=== PATIENT | female | born 1990 ===

== ENCOUNTER 2019-05-13 10:39 | Inpatient (IN) | payer BC ==
[2019-05-13] MEDS ORDERED: Misoprostol 200 MCG Tab PO PRN (11:55)
[2019-05-13] MEDS ORDERED: Sodium Chloride 0.9% 10 ML Syringe FLUSH PRN (11:55)
[2019-05-13] MEDS ORDERED: Tranexamic Acid 1,000 MG in Sodium Chloride 0.9% 100 ML IV PRN (11:55)
[2019-05-13] MEDS ORDERED: Sodium Chloride 0.9% 2.5 ML Syringe FLUSH PRN (11:55)
[2019-05-13] MEDS ORDERED: Carboprost Tromethamine 250 MCG/1 ML Amp IM PRN (11:55)
[2019-05-13] MEDS ORDERED: Sodium Chloride 0.9% 10 ML SDV IV PRN (11:55)
[2019-05-13] MEDS ORDERED: Lidocaine 1% 50 ML MDV INJECT PRN (11:55)
[2019-05-13] MEDS ORDERED: Methylergonovine 0.2 MG/1 ML Amp IM PRN (11:55)
[2019-05-13] MEDS ORDERED: Ondansetron 4 MG/2 ML SDV IVPUSH PRN (11:55)
[2019-05-13] MEDS ORDERED: Nalbuphine 10 MG/1 ML Vial IVPUSH PRN (11:55)
[2019-05-13] MEDS ORDERED: Water For Irrigation,Sterile 1,000 ML Container IRR PRN (11:55)
[2019-05-13] MEDS ORDERED: Butorphanol 1 MG/ML SDV IVPUSH PRN (11:55)
[2019-05-13] MEDS ORDERED: Oxytocin/0.9 % Sodium Chloride 30 UNIT/500 ML BAG IV SCH ×2 (12:00→14:15)
[2019-05-13] MEDS ORDERED: Lactated Ringers 1,000 ML IV SCH (12:00)
--- NOTE | 2019-05-13 13:05 | PCM.LDHP ---
L&D History of Present Illness - General Date of Service: 05/13/19 Admit Problem/Dx: Patient Status Order with Admit Dx/Problem 05/13/19 11:04 Patient Status [ADT] Routine 05/13/19 11:56 Patient Status [ADT] Routine Admission Diagnosis/Problem Admission Diagnosis/Problem - planned Source of Information: Patient History Limitations: Reports: No Limitations - History of Present Illness Improves with: Reports: None Worsens with: Reports: None Associated Symptoms: Reports: N - Related Data Allergies/Adverse Reactions: Allergies Allergy/AdvReac Type Severity Reaction Status Date / Time No Known Allergies Allergy Verified 05/13/19 11:03 H&P Review of Systems - Review of Systems: Review Of Systems: See Below General: Reports: No Symptoms HEENT: Reports: No Symptoms Pulmonary: Reports: No Symptoms Cardiovascular: Reports: No Symptoms Gastrointestinal: Reports: No Symptoms Genitourinary: Reports: No Symptoms Musculoskeletal: Reports: No Symptoms Skin: Reports: No Symptoms Psychiatric: Reports: No Symptoms Neurological: Reports: No Symptoms Hematologic/Lymphatic: Reports: No Symptoms Immunologic: Reports: No Symptoms L&D Exam - Exam Exam: See Below - Vital Signs Weight: 98.43 kg - OB Specific Contraction Intensity: Mild to Moderate Movement: Active Heart Tones: Present Presentation: Vertex - Phillips Score Phillips Score Cervix Position: Anterior Phillips Score Effacement: 51-70% Phillips Score Dilation: 1-2 cm - Exam General: Alert, Oriented HEENT: PERRLA, Conjunctiva Clear, EACs Clear, EOMI, Hearing Intact, Mucosa Moist & [place], Nares Patent, Normal Nasal Septum, Posterior Pharynx Clear, TMs Clear Neck: Supple, Trachea Midline Lungs: Clear to Auscultation, Normal Respiratory Effort Cardiovascular: Regular Rate, Regular Rhythm GI/Abdominal Exam: Normal Bowel Sounds, Soft, Non-Tender, No Organomegaly, No Distention, No Abnormal Bruit, No Mass, Pelvis Stable Rectal Exam: Normal Exam, Normal Rectal Tone Genitourinary: Normal external exam, Normal bimanual exam, Normal speculum exam Back Exam: Normal Inspection, Full Range of Motion Extremities: Normal Inspection, Normal Range of Motion, Non-Tender, No Pedal Edema, Normal Capillary Refill Skin: Warm, Dry, Intact Neurological: Cranial Nerves Intact, Reflexes Equal Bilateral Psychiatric: Alert, Normal Affect, Normal Mood - Patient Data Lab Results Last 24 hrs: Laboratory Results - last 24 hr 05/13/19 05/13/19 Range/Units 10:39 12:13 WBC 11.47 H (4.0-11.0) K/uL RBC 4.02 L (4.30-5.90) M/uL Hgb 11.5 L (12.0-16.0) g/dL Hct 34.3 L (36.0-46.0) % MCV 85.3 (80.0-98.0) fL MCH 28.6 (27.0-32.0) pg MCHC 33.5 (31.0-37.0) g/dL RDW Std Deviation 45.3 (28.0-62.0) fl RDW Coeff of Nathan 15 (11.0-15.0) % Plt Count 268 (150-400) K/uL MPV 9.70 (7.40-12.00) fL Nucleated RBC % 0.0 /100WBC Nucleated RBCs # 0 K/uL Membrane Rupture POSITIVE Result Diagrams: 05/13/19 12:13 Problem List Initiated/Reviewed/Updated: Yes Orders Last 24hrs: Active Orders 24 hr Category Date Time Status Patient Status [ADT] Routine ADT 05/13/19 11:04 Active Patient Status [ADT] Routine ADT 05/13/19 11:56 Active Non Stress Test [RC] PER UNIT ROUTINE Care 05/13/19 11:04 Active May Shower [RC] ASDIRECTED Care 05/13/19 11:56 Active Notify Provider [RC] PRN Care 05/13/19 11:56 Active Up ad Queta [RC] ASDIRECTED Care 05/13/19 11:04 Active Vaginal Exam [RC] Click to Edit Care 05/13/19 11:04 Active Vital Signs [RC] PER UNIT ROUTINE Care 05/13/19 11:04 Active TYPE AND SCREEN [BBK] Routine Lab 05/13/19 12:13 Received Butorphanol [Stadol] Med 05/13/19 11:55 Active 1 mg IVPUSH Q1H PRN Carboprost Tromethamine [Hemabate DS] Med 05/13/19 11:55 Active 250 mcg IM ASDIRECTED PRN Lactated Ringers [Ringers, Lactated] 1,000 ml Med 05/13/19 12:00 Active IV ASDIRECTED Lidocaine 1% [Xylocaine 1%] Med 05/13/19 11:55 Active 50 ml INJECT ONETIME PRN Methylergonovine [Methergine] Med 05/13/19 11:55 Active 0.2 mg IM ASDIRECTED PRN Nalbuphine [Nubain] Med 05/13/19 11:55 Active 10 mg IVPUSH Q1H PRN Ondansetron [Zofran] Med 05/13/19 11:55 Active 4 mg IVPUSH Q4H PRN Oxytocin/0.9 % Sodium Chloride [Oxytocin 30 Unit/500 ML Med 05/13/19 12:00 Active -NS] 30 unit in 500 ml IV TITRATE Sodium Chloride 0.9% [Normal Saline] Med 05/13/19 11:55 Active 10 ml IV ASDIRECTED PRN Sodium Chloride 0.9% [Saline Flush] Med 05/13/19 11:55 Active 10 ml FLUSH ASDIRECTED PRN Sodium Chloride 0.9% [Saline Flush] Med 05/13/19 11:55 Active 2.5 ml FLUSH ASDIRECTED PRN Tranexamic Acid [Cyklokapron] 1,000 mg Med 05/13/19 11:55 Active Sodium Chloride 0.9% [Normal Saline] 100 ml IV ONETIME Water For Irrigation,Sterile [Sterile Water for Med 05/13/19 11:55 Active Irrigation] 1,000 ml IRR ASDIRECTED PRN miSOPROStol [Cytotec] Med 05/13/19 11:55 Active 200 mcg PO ONETIME PRN Scalp Electrode [WOMSER] Per Unit Routine Oth 05/13/19 11:56 Ordered Peripheral IV Insertion Adult [OM.PC] Routine Oth 05/13/19 11:56 Ordered Resuscitation Status Routine Resus Stat 05/13/19 11:04 Ordered Medication Orders Butorphanol Tartrate (Stadol) 1 mg IVPUSH Q1H PRN PRN Reason: Pain Carboprost Tromethamine (Hemabate Ds) 250 mcg IM ASDIRECTED PRN PRN Reason: Post Hemorrhage Tranexamic Acid 1,000 mg/ (Sodium Chloride) 110 mls @ 660 mls/hr IV ONETIME PRN PRN Reason: Bleeding Lactated Ringer's (Ringers, Lactated) 1,000 mls @ 150 mls/hr IV ASDIRECTED [facility] Oxytocin/Sodium Chloride (Oxytocin 30 Unit/500 Ml-Ns) 30 unit in 500 mls @ 500 mls/hr IV TITRATE RONNIE Lidocaine HCl (Xylocaine 1%) 50 ml INJECT ONETIME PRN PRN Reason: Laceration repair Methylergonovine Maleate (Methergine) 0.2 mg IM ASDIRECTED PRN PRN Reason: Post Hemorrhage Misoprostol (Cytotec) 200 mcg PO ONETIME PRN PRN Reason: Post Hemorrhage Nalbuphine HCl (Nubain) 10 mg IVPUSH Q1H PRN PRN Reason: Pain (severe 7-10) Ondansetron HCl (Zofran) 4 mg IVPUSH Q4H PRN PRN Reason: Nausea/Vomiting Sodium Chloride (Saline Flush) 10 ml FLUSH ASDIRECTED PRN PRN Reason: Keep Vein Open Sodium Chloride (Saline Flush) 2.5 ml FLUSH ASDIRECTED PRN PRN Reason: Keep Vein Open Sodium Chloride (Normal Saline) 10 ml IV ASDIRECTED PRN PRN Reason: IV Use Sterile Water (Sterile Water For Irrigation) 1,000 ml IRR ASDIRECTED PRN PRN Reason: delivery Assessment/Plan Comment:: IUP 39+3 SROM early labor.
[2019-05-13] MEDS ORDERED: Ropivacaine HCl/PF 100 ML ONE (17:29)
[2019-05-13] MEDS ORDERED: fentaNYL 100 MCG/2 ML SDV ONE (17:29)
--- NOTE | 2019-05-13 17:56 | PCM.PREANE ---
Preanesthetic Assessment - Anesthesia/Transfusion/Family Hx Anesthesia History: Prior Anesthesia Without Reaction Family History of Anesthesia Reaction: No - Physical Assessment Height: 1.68 m Weight: 97.069 kg ASA Class: 1 Mental Status: Alert & Oriented x3 Dentition: Reports: Normal Dentition - Lab Values: Laboratory Last Values WBC 11.47 K/uL (4.0-11.0) H 05/13/19 12:13 RBC 4.02 M/uL (4.30-5.90) L 05/13/19 12:13 Hgb 11.5 g/dL (12.0-16.0) L 05/13/19 12:13 Hct 34.3 % (36.0-46.0) L 05/13/19 12:13 MCV 85.3 fL (80.0-98.0) 05/13/19 12:13 MCH 28.6 pg (27.0-32.0) 05/13/19 12:13 MCHC 33.5 g/dL (31.0-37.0) 05/13/19 12:13 RDW Std Deviation 45.3 fl (28.0-62.0) 05/13/19 12:13 RDW Coeff of Nathan 15 % (11.0-15.0) 05/13/19 12:13 Plt Count 268 K/uL (150-400) 05/13/19 12:13 MPV 9.70 fL (7.40-12.00) 05/13/19 12:13 Nucleated RBC % 0.0 /100WBC 05/13/19 12:13 Nucleated RBCs # 0 K/uL 05/13/19 12:13 Membrane Rupture POSITIVE 05/13/19 10:39 Blood Type O POSITIVE 05/13/19 12:13 Antibody Screen NEGATIVE 05/13/19 12:13 - Allergies Allergies/Adverse Reactions: Allergies Allergy/AdvReac Type Severity Reaction Status Date / Time No Known Allergies Allergy Verified 05/13/19 11:03 - Acknowledgements Anesthesia Type Planned: Epidural Pt an Appropriate Candidate for the Planned Anesthesia: Yes Alternatives and Risks of Anesthesia Discussed w Pt/Guardian: Yes Pt/Guardian Understands and Agrees with Anesthesia Plan: Yes PreAnesthesia Questionnaire - Past Health History Medical/Surgical History: Denies 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 Smoking Status *Q: Former Smoker Tobacco Use Within Last Twelve Months: Cigarettes Second Hand Smoke Exposure: No Recreational Drug Use History: No - CURRENT (IN HOUSE) MEDS Current Meds: Current Medications Butorphanol Tartrate (Stadol) 1 mg IVPUSH Q1H PRN PRN Reason: Pain Last Admin: 05/13/19 17:30 Dose: 1 mg Carboprost Tromethamine (Hemabate Ds) 250 mcg IM ASDIRECTED PRN PRN Reason: Post Hemorrhage Tranexamic Acid 1,000 mg/ (Sodium Chloride) 110 mls @ 660 mls/hr IV ONETIME PRN PRN Reason: Bleeding Lactated Ringer's (Ringers, Lactated) 1,000 mls @ 150 mls/hr IV ASDIRECTED RONNIE Last Admin: 05/13/19 14:38 Dose: 150 mls/hr Oxytocin/Sodium Chloride (Oxytocin 30 Unit/500 Ml-Ns) 30 unit in 500 mls @ 500 mls/hr IV TITRATE RONNIE Oxytocin/Sodium Chloride (Oxytocin 30 Unit/500 Ml-Ns) 30 unit in 500 mls @ 2 mls/hr IV TITRATE RONNIE; Protocol Last Infusion: 05/13/19 16:32 Dose: 10 munits/min, 10 mls/hr Lidocaine HCl (Xylocaine 1%) 50 ml INJECT ONETIME PRN PRN Reason: Laceration repair Methylergonovine Maleate (Methergine) 0.2 mg IM ASDIRECTED PRN PRN Reason: Post Hemorrhage Misoprostol (Cytotec) 200 mcg PO ONETIME PRN PRN Reason: Post Hemorrhage Nalbuphine HCl (Nubain) 10 mg IVPUSH Q1H PRN PRN Reason: Pain (severe 7-10) Ondansetron HCl (Zofran) 4 mg IVPUSH Q4H PRN PRN Reason: Nausea/Vomiting Sodium Chloride (Saline Flush) 10 ml FLUSH ASDIRECTED PRN PRN Reason: Keep Vein Open Sodium Chloride (Saline Flush) 2.5 ml FLUSH ASDIRECTED PRN PRN Reason: Keep Vein Open Sodium Chloride (Normal Saline) 10 ml IV ASDIRECTED PRN PRN Reason: IV Use Sterile Water (Sterile Water For Irrigation) 1,000 ml IRR ASDIRECTED PRN PRN Reason: delivery Discontinued Medications Fentanyl (Sublimaze) Confirm Administered Dose 100 mcg .ROUTE .STK-MED ONE Stop: 05/13/19 17:30 Ropivacaine (Naropin 0.2%) Confirm Administered Dose 100 mls @ as directed .ROUTE .ST-MED ONE Stop: 05/13/19 17:30
--- NOTE | 2019-05-13 17:59 | PCM.PRNOTE ---
- Free Text/Narrative Note: Anes Note Patietn requests epidural for lL&D. Sitting position. Level L3-L4 midline approach. Sterile tehnique. Chloraprep scrub to lumbar area. Epidural Space easily achieved using ALAINA technique. ALAINA at 4 cm. Cath threaded 5 cmwith ease. Secured at 10 cm at skin with sterile clear adhesive dressing. Test 1845 3 cc 1.5 lido with epi negative Load 1847 10 cc 0.2% ropiv with 1 mcg cc fentanyl in slow divided doses. 1850 Pump started same solution at 8 cc hr with 6 cc q 20 min prn bolus. Tole well. Time with patient [id number] Juan Hernandez CRNA
[2019-05-13] MEDS ORDERED: Bisacodyl 10 MG Supp RECTAL PRN (18:27)
[2019-05-13] MEDS ORDERED: Benzocaine/Menthol 20%-0.5% Spray 78 GM Cannister TOP PRN (18:27)
[2019-05-13] MEDS ORDERED: Ibuprofen 400 MG Tab PO PRN (18:27)
[2019-05-13] MEDS ORDERED: Witch Hazel Medicated Pads 40/Jar TOP PRN (18:27)
[2019-05-13] MEDS ORDERED: Docusate Sodium 100 MG Cap PO PRN (18:27)
[2019-05-13] MEDS ORDERED: Lanolin 100% Cream 7 GM Tube TOP PRN (18:27)
[2019-05-13] MEDS ORDERED: Acetaminophen 500 MG Tab PO PRN (18:27)
[2019-05-13] MEDS ORDERED: oxyCODONE 5 MG Tab PO PRN (18:27)
--- NOTE | 2019-05-14 00:06 | OR ---
SURGEON: Chava Choi MD DATE OF PROCEDURE: DELIVERY NOTE: Ms. Luna is 29 years old patient. She is para 1-0-0-1. She is 39 plus 3. She is followed in our clinic jointly by myself and the nurse wafer fab technician. She had no complication. Her GBS status was negative. Her diabetes screen was negative. She is admitted with spontaneous rupture of the membranes that was confirmed by [facility]. At the time of admission, she was 4 to 5 cm, 80% vertex and -3. The patient is walked for a while and then she required Pitocin to start her labor. The patient progressed with the Pitocin to 6 to 7 cm, complete, vertex and -1. She had epidural anesthesia for labor analgesia and then she became complete and she was able to accomplish normal spontaneous vaginal delivery of a female fetus. Cried immediately. score reported to be 8 and 9. The placenta delivered spontaneous, complete and intact. There was no perineal, vaginal, or labial laceration. There was no need for episiotomy. Estimated blood loss 300 to 350 mL. heart rate was category 1 through the entire process of labor. There was no complication in the labor and delivery process. TELLO / VLADISLAV /[id number]
[2019-05-14] MEDS: Ibuprofen 800 MG Tab PO PRN ×3 (00:49→20:10)
[2019-05-14] MEDS: Acetaminophen 500 MG Tab PO PRN ×2 (04:50→13:13)
--- NOTE | 2019-05-14 07:30 | PCM.POSTAN ---
POST ANESTHESIA ASSESSMENT - VITAL SIGNS Vital Signs: Last Vital Signs Temp 36.3 C 05/14/19 04:35 Pulse 78 05/14/19 04:35 Resp 18 05/14/19 04:35 BP 106/65 05/14/19 04:35 Pulse Ox 96 05/14/19 04:35 - RESPIRATORY Respiratory Status: Respiratory Rate WNL - CARDIOVASCULAR CV Status: Pulse Rate WNL - GASTROINTESTINAL GI Status: No Symptoms - POST OP HYDRATION Hydration Status: Adequate & Stable
--- NOTE | 2019-05-14 07:30 | PCM48HPAN ---
Post Anesthesia Note - EVALUATION WITHIN 48HRS OF ANESTHETIC Vital Signs in Normal Range: Yes Patient Participated in Evaluation: Yes Respiratory Function Stable: Yes Airway Patent: Yes Cardiovascular Function Stable: Yes Hydration Status Stable: Yes Pain Control Satisfactory: Yes Nausea and Vomiting Control Satisfactory: Yes Mental Status Recovered: Yes Vital Signs: Last Vital Signs Temp 36.3 C 05/14/19 04:35 Pulse 78 05/14/19 04:35 Resp 18 05/14/19 04:35 BP 106/65 05/14/19 04:35 Pulse Ox 96 05/14/19 04:35
--- NOTE | 2019-05-14 11:44 | PCM.PNPP ---
- General Info Date of Service: 05/14/19 Functional Status: Reports: Pain Controlled - Review of Systems General: Reports: No Symptoms HEENT: Reports: No Symptoms Pulmonary: Reports: No Symptoms Cardiovascular: Reports: No Symptoms Gastrointestinal: Reports: No Symptoms Genitourinary: Reports: No Symptoms Musculoskeletal: Reports: No Symptoms Skin: Reports: No Symptoms Neurological: Reports: No Symptoms Psychiatric: Reports: No Symptoms - General Info Date of Service: 05/14/19 - Patient Data Vital Signs - Most Recent: Last Vital Signs Temp 36.5 C 05/14/19 08:00 Pulse 77 05/14/19 08:00 Resp 18 05/14/19 08:00 BP 126/83 05/14/19 08:00 Pulse Ox 96 05/14/19 08:00 Weight - Most Recent: 97.069 kg Lab Results - Last 24 Hours: Laboratory Results - last 24 hr 05/13/19 05/13/19 05/14/19 Range/Units 12:13 12:13 06:28 WBC 11.47 H (4.0-11.0) K/uL RBC 4.02 L (4.30-5.90) M/uL Hgb 11.5 L 10.5 L (12.0-16.0) g/dL Hct 34.3 L 31.4 L (36.0-46.0) % MCV 85.3 (80.0-98.0) fL MCH 28.6 (27.0-32.0) pg MCHC 33.5 (31.0-37.0) g/dL RDW Std Deviation 45.3 (28.0-62.0) fl RDW Coeff of Nathan 15 (11.0-15.0) % Plt Count 268 (150-400) K/uL MPV 9.70 (7.40-12.00) fL Nucleated RBC % 0.0 /100WBC Nucleated RBCs # 0 K/uL Blood Type O POSITIVE Antibody Screen NEGATIVE Med Orders - Current: Current Medications Acetaminophen (Tylenol Extra Strength) 500 mg PO Q4H PRN PRN Reason: Pain Acetaminophen (Tylenol Extra Strength) 1,000 mg PO Q4H PRN PRN Reason: Pain Last Admin: 05/14/19 04:50 Dose: 1,000 mg Benzocaine/Menthol (Dermoplast Pain Relief 20%-0.5% [place]) 0 gm TOP ASDIRECTED PRN PRN Reason: Perineal Comfort Measure Last Admin: 05/13/19 22:20 Dose: 1 can Bisacodyl (Dulcolax) 10 mg RECTAL ONETIME PRN PRN Reason: Constipation Butorphanol Tartrate (Stadol) 1 mg IVPUSH Q1H PRN PRN Reason: Pain Last Admin: 05/13/19 17:30 Dose: 1 mg Carboprost Tromethamine (Hemabate Ds) 250 mcg IM ASDIRECTED PRN PRN Reason: Post Hemorrhage Docusate Sodium (Colace) 100 mg PO BID PRN PRN Reason: Constipation Emollient Ointment (Lansinoh Hpa) 0 gm TOP ASDIRECTED PRN PRN Reason: Sore Nipples Last Admin: 05/13/19 22:18 Dose: 7 gm Tranexamic Acid 1,000 mg/ (Sodium Chloride) 110 mls @ 660 mls/hr IV ONETIME PRN PRN Reason: Bleeding Lactated Ringer's (Ringers, Lactated) 1,000 mls @ 150 mls/hr IV ASDIRECTED RONNIE Last Admin: 05/13/19 14:38 Dose: 150 mls/hr Oxytocin/Sodium Chloride (Oxytocin 30 Unit/500 Ml-Ns) 30 unit in 500 mls @ 500 mls/hr IV TITRATE RONNIE Oxytocin/Sodium Chloride (Oxytocin 30 Unit/500 Ml-Ns) 30 unit in 500 mls @ 2 mls/hr IV TITRATE RONNIE; Protocol Last Infusion: 05/13/19 16:32 Dose: 10 munits/min, 10 mls/hr Ibuprofen (Motrin) 400 mg PO Q4H PRN PRN Reason: Pain Ibuprofen (Motrin) 800 mg PO Q6H PRN PRN Reason: Pain Last Admin: 05/14/19 08:34 Dose: 800 mg Lidocaine HCl (Xylocaine 1%) 50 ml INJECT ONETIME PRN PRN Reason: Laceration repair Methylergonovine Maleate (Methergine) 0.2 mg IM ASDIRECTED PRN PRN Reason: Post Hemorrhage Misoprostol (Cytotec) 200 mcg PO ONETIME PRN PRN Reason: Post Hemorrhage Nalbuphine HCl (Nubain) 10 mg IVPUSH Q1H PRN PRN Reason: Pain (severe 7-10) Ondansetron HCl (Zofran) 4 mg IVPUSH Q4H PRN PRN Reason: Nausea/Vomiting Oxycodone HCl (Oxycodone) 5 mg PO Q2H PRN PRN Reason: Pain Sodium Chloride (Saline Flush) 10 ml FLUSH ASDIRECTED PRN PRN Reason: Keep Vein Open Sodium Chloride (Saline Flush) 2.5 ml FLUSH ASDIRECTED PRN PRN Reason: Keep Vein Open Sodium Chloride (Normal Saline) 10 ml IV ASDIRECTED PRN PRN Reason: IV Use Sterile Water (Sterile Water For Irrigation) 1,000 ml IRR ASDIRECTED PRN PRN Reason: delivery Witjose a Mixon (Tucks) 1 pad TOP ASDIRECTED PRN PRN Reason: comfort care Last Admin: 05/13/19 22:19 Dose: 1 tub Discontinued Medications Fentanyl (Sublimaze) Confirm Administered Dose 100 mcg .ROUTE .Slide-MED ONE Stop: 05/13/19 17:30 Last Admin: 05/13/19 23:14 Dose: Not Given Ropivacaine (Naropin 0.2%) Confirm Administered Dose 100 mls @ as directed .ROUTE .[place]-MED ONE Stop: 05/13/19 17:30 Last Admin: 05/13/19 23:14 Dose: Not Given - Interaction Disposition, : in Room with Family Interaction: Holding Infant Feeding: Attempted ; Nursed Fair/Poor Support Person: - Recovery Exam Fundal Tone: Firm Fundal Level: At Umbilicus Fundal Placement: Midline Lochia Amount: Scant Lochia Color: Rubra/Red Perineum Description: Intact, Minimal Bruising/Swelling Episiotomy/Laceration: None Bladder Status: Voiding Urinary Elimination: Voided - Exam General: Alert, Oriented HEENT: Pupils Equal Neck: Supple Lungs: Clear to Auscultation, Normal Respiratory Effort Cardiovascular: Regular Rate, Regular Rhythm GI/Abdominal Exam: Normal Bowel Sounds, Soft, Non-Tender, No Organomegaly, No Distention, No Abnormal Bruit, No Mass, Pelvis Stable Extremities: Normal Inspection, Normal Range of Motion, Non-Tender, No Pedal Edema, Normal Capillary Refill Skin: Warm, Dry, Intact Wound/Incisions: Healing Well Neurological: No New Focal Deficit Psy/Mental Status: Alert, Normal Affect, Normal Mood - Problem List Review Problem List Initiated/Reviewed/Updated: Yes - My Orders Last 24 Hours: My Active Orders 05/13/19 11:04 Up ad Queta [RC] ASDIRECTED Resuscitation Status Routine 05/13/19 11:55 Butorphanol [Stadol] 1 mg IVPUSH Q1H PRN Carboprost Tromethamine [Hemabate DS] 250 mcg IM ASDIRECTED PRN Lidocaine 1% [Xylocaine 1%] 50 ml INJECT ONETIME PRN Methylergonovine [Methergine] 0.2 mg IM ASDIRECTED PRN Nalbuphine [Nubain] 10 mg IVPUSH Q1H PRN Ondansetron [Zofran] 4 mg IVPUSH Q4H PRN Sodium Chloride 0.9% [Normal Saline] 10 ml IV ASDIRECTED PRN Sodium Chloride 0.9% [Saline Flush] 10 ml FLUSH ASDIRECTED PRN Sodium Chloride 0.9% [Saline Flush] 2.5 ml FLUSH ASDIRECTED PRN Tranexamic Acid [Cyklokapron] 1,000 mg Sodium Chloride 0.9% [Normal Saline] 100 ml IV ONETIME Water For Irrigation,Sterile [Sterile Water for Irrigation] 1,000 ml IRR ASDIRECTED PRN miSOPROStol [Cytotec] 200 mcg PO ONETIME PRN 05/13/19 11:56 May Shower [RC] ASDIRECTED Scalp Electrode [WOMSER] Per Unit Routine Peripheral IV Insertion Adult [OM.PC] Routine 05/13/19 12:00 Lactated Ringers [Ringers, Lactated] 1,000 ml IV ASDIRECTED Oxytocin/0.9 % Sodium Chloride [Oxytocin 30 Unit/500 ML-NS] 30 unit in 500 ml IV TITRATE 05/13/19 14:15 Oxytocin/0.9 % Sodium Chloride [Oxytocin 30 Unit/500 ML-NS] 30 unit in 500 ml IV TITRATE 05/13/19 18:27 Acetaminophen [Tylenol Extra Strength] 1,000 mg PO Q4H PRN Acetaminophen [Tylenol Extra Strength] 500 mg PO Q4H PRN Benzocaine/Menthol [Dermoplast Pain Relief 20%-0.5% [place]] 0 gm TOP ASDIRECTED PRN Bisacodyl [Dulcolax] 10 mg RECTAL ONETIME PRN Docusate Sodium [Colace] 100 mg PO BID PRN Ibuprofen [Motrin] 400 mg PO Q4H PRN Ibuprofen [Motrin] 800 mg PO Q6H PRN Lanolin [Lansinoh HPA] See Dose Instructions TOP ASDIRECTED PRN Witch Apurva [Tucks] 1 pad TOP ASDIRECTED PRN oxyCODONE 5 mg PO Q2H PRN 05/13/19 18:28 Patient Status [ADT] Routine Vital Signs [RC] PER UNIT ROUTINE Assess Lochia [WOMSER] Per Unit Routine Assess Uterine Involution [WOMSER] Per Unit Routine Peripheral IV Discontinue [OM.PC] Routine 05/14/19 Breakfast Regular Diet [DIET] - Plan Plan:: IUP 39+3 SROM early labor.
== END 2019-05-14 20:45 | disposition home or self-care (01) | DRG 560 ==
LOC: MW.OBCHECK 10:39 → MW.OB 10:40 → MW.OBCHECK 18:20 → MW.OB 18:21 → OBSVTOIN 18:22 → MW.OB 05-14 02:22
PROVIDERS: ADMIT Obstetrics & Gynecology; ATTEND Obstetrics & Gynecology
PROC: 10E0XZZ Delivery of Products of Conception, External Approach (ICD-10-PCS; principal; 2019-05-13)
PROC: 3E0R3BZ Introduction of Anesthetic Agent into Spinal Canal, Percutaneous Approach (ICD-10-PCS; 2019-05-13)
PROC: 00HU33Z Insertion of Infusion Device into Spinal Canal, Percutaneous Approach (ICD-10-PCS; 2019-05-13)
DX: O80 Encounter for full-term uncomplicated delivery (principal); Z3A.39 39 weeks gestation of pregnancy; Z37.0 Single live birth; Z87.891 Personal history of nicotine dependence
CPT/HCPCS: 36415; 59025; 59409; 84112; 85014; 85018; 85027; 86850; 86900; 86901; A9270-GY; J0595; J2590; J2795; J3010; J7120